=== PATIENT | female | born 1990 | race Caucasian/White ===

== ENCOUNTER 2017-04-26 13:58 | Outpatient (CLI) | payer SELFPAY ==
[2017-04-26] MEDS ORDERED: LACTATED RINGERS 500 ML IV ONE (16:00)
--- NOTE | 2017-04-26 16:23 | Ultrasound Report ---
LIMITED OB ULTRASOUND: Gestation: Rendon Position: Cephalic RUAL = 13.3 cm Heart Rate: 156 BPM Estimated gestational age is 32 weeks 0 days. BIOPHYSICAL PROFILE: 2 - breathing movements 2 - movements 2 - posture and tone 2 - Qualitative amniotic fluid volume 8 - TOTAL SCORE OF POSSIBLE 8 Heart Rate (bpm) 156
--- NOTE | 2017-04-26 16:23 | Ultrasound Report ---
LIMITED OB ULTRASOUND: Gestation: Rendon Position: Cephalic RAUL = 13.3 cm Heart Rate: 156 BPM Estimated gestational age is 32 weeks 0 days. BIOPHYSICAL PROFILE: 2 - breathing movements 2 - movements 2 - posture and tone 2 - Qualitative amniotic fluid volume 8 - TOTAL SCORE OF POSSIBLE 8 Heart Rate (bpm) 156
== END 2017-04-26 16:52 | disposition home or self-care (01) ==
LOC: TRG 13:58
PROVIDERS: ATTEND Obstetrics & Gynecology
DX: O47.03 False labor before 37 completed weeks of gestation, third trimester (principal); Z3A.32 32 weeks gestation of pregnancy
CPT/HCPCS: 59025; 76815; 76819